=== PATIENT | male | born 1935 | race Caucasian/White ===

== ENCOUNTER 2016-06-07 16:30 | Observation (INO) | payer MEDICARE ==
--- NOTE | ~2016-06-07 | DS ---
Unit #: [id number] #: [id number] Patient: JONATHAN LANGLEY [id number] [address] [place], [place] [address] [id number] I MR#: [id number] NAME: JONATHAN LANGLEY. ROOM: 216 Age: 81 Sex: M Admission Date: 06/07/2016 : 1935 Discharge Date: 06/08/2016 Attending Physician: Anson Chris M.D. DISCHARGE SUMMARY A 23-HOUR OBSERVATION REASON FOR ADMISSION Anemia. HISTORY OF PRESENT ILLNESS The patient is an 81-year-old white male with history of end-stage renal disease on hemodialysis Mondays and Fridays at [facility]. Also, with diabetes and hypertension. Was found to be anemic at dialysis with hemoglobin 7. Was admitted to 23-hour observation for transfusion of 2 units of packed red blood cells. He was given blood overnight. Repeat hemoglobin is at 10. His home medications were continued. PHYSICAL EXAMINATION VITAL SIGNS: His blood pressures have ranged from 145/48 to 173/52 with heart rate of 67, respirations 16, temperature 97.8. GENERAL: He is a well-nourished white male. HEENT: Shows no JVD, no LAD. CARDIOVASCULAR: Regular rate and rhythm without murmurs, rubs, or gallops. LUNGS: Clear to auscultation bilaterally. ABDOMEN: Soft, nontender, nondistended. EXTREMITIES: Show no clubbing, cyanosis, or edema. His right upper extremity has an AV fistula, positive thrill and bruit. NEUROLOGIC: Grossly intact. DIAGNOSTIC STUDIES LABORATORY: Labs reviewed and include a repeat hemoglobin of 10. DISCHARGE MEDICATIONS 1. Tylenol 650 mg p.o. q.4 hours p.r.n. 2. Starlix 60 mg p.o. t.i.d. 3. Zetia 10 mg p.o. nightly. 4. Metoprolol XL 250 mg b.i.d. 5. MiraLax daily. 6. Rosuvastatin 5 mg p.o. daily. 7. Fish oil one p.o. b.i.d. 8. Aspirin 81 mg p.o. daily. DISCHARGE INSTRUCTIONS The patient is to follow up with his regularly scheduled hemodialysis on Tuesday. His dialysis unit was called and they were given information as Unit #: [id number] #: [id number] Patient: JONATHAN LANGLEY well as the repeat lab results. Dictated by... Darby Payne TD: 06/08/2016 16:53 JOB #: [id number] DISCHARGE SUMMARY Page 1 of 1 X Hilary Torres MD X DISCHARGE SUMMARY
[~2016-06-07 16:30] MED LIST: ACETAMINOPHEN PO; AMLODIPINE BESYL5 MG PO; ASPIRIN81 MG PO; CALCITRIOL0.25 MCG PO; CRESTOR5 MG PO; FISH OIL 1,2001 EAC2 PO; GLIPIZIDE10 MG PO; METOPROLOL SUCC50 MG PO; MIRALAX17 GM PO; SIMVASTATIN20 MG PO; SOD BICARBONATE PO; STARLIX60 MG PO; ZETIA PO; ZYLOPRIM PO
[2016-06-08 12:23] LABS: HEMATOCRIT 30.5 % (38.0-50.0)
[2016-06-08 12:33] LABS: HEMOGLOBIN 10.1 gm/dL (13.0-16.0)
== END 2016-06-08 17:38 | disposition home or self-care (01) ==
LOC: C2A 16:30
PROVIDERS: Internal Medicine Nephrology
DX: E11.22 Type 2 diabetes mellitus with diabetic chronic kidney disease (principal); I12.0 Hypertensive chronic kidney disease with stage 5 chronic kidney disease or end stage renal disease; N18.6 End stage renal disease; D63.1 Anemia in chronic kidney disease; Z99.2 Dependence on renal dialysis; Z79.84 Long term (current) use of oral hypoglycemic drugs; Z79.899 Other long term (current) drug therapy; Z79.82 Long term (current) use of aspirin
CPT/HCPCS: 36430; 85014; 85018; 86850; 86900; 86901; 86923; G0378; P9016

== ENCOUNTER 2016-07-10 11:57 | Inpatient (IN) | payer MEDICARE ==
--- NOTE | ~2016-07-10 | HP ---
Unit #: [id number] #: [id number] Patient: JONATHAN LANGLEY [id number] [facility]. [place], [place] [address] [id number] I MR#: [id number] NAME: JONATHAN LANGLEY ROOM: 319 Age: 81 Sex: M Admission Date: 07/10/2016 : 1935 Attending Physician: Nancy Kelley M.D. Primary Care Physician: Jaqui Jackson M.D. HISTORY AND PHYSICAL CHIEF COMPLAINT Missed dialysis. HISTORY OF PRESENT ILLNESS The patient is an 81-year-old male with a history of chronic renal disease, stage 4 secondary to diabetes and hypertension on dialysis Tuesday, Tuesday and Tuesday and had a recent foot surgery with a partial left foot amputation last , missed her dialysis on Tuesday, presented to the emergency room with abnormal labs. The patient stated the patient is scheduled to follow with the foot doctor next and patient was found to have abnormal labs with potassium of 6.7. The patient is being admitted for the above reasons. The patient denies any chest pain, palpitations, nausea, or vomiting. The patient was found to be anemia with hemoglobin of 7 and hematocrit of 22.2. The patient is over in the dialysis with a blood transfusion urgently today. Denies any fever, chills, nausea, or vomiting. PAST MEDICAL HISTORY History of chronic kidney disease, diabetes, hypertension, hyperlipidemia, gout, secondary to hyperparathyroidism. PAST SURGICAL HISTORY History of a back surgery, left ear surgery, placement of a right upper extremity AV fistula and left partial foot amputation. SOCIAL HISTORY Quit smoking many years ago. No alcohol. Denies any illicit drug abuse. FAMILY HISTORY Reviewed and none. ALLERGIES No know drug allergies. MEDICATIONS Aspirin, Percocet, Norvasc, Coreg, Plavix, Renvela, Desyrel, cephalexin. REVIEW OF SYSTEMS Fourteen point review of systems was performed and only pertinent positives findings are as described above. The remaining are negative. PHYSICAL EXAMINATION GENERAL: The patient is lying in the bed, not in acute distress. VITALS: Temperature 97.9, pulse 68, respiratory rate 15, blood pressure 142/59, satting 93% at 3 liters. Unit #: [id number] #: [id number] Patient: JONATHAN LANGLEY HEENT: Head atraumatic, normocephalic. Pupils equal, round and reactive to light and accommodation. Extraocular movements are intact. NECK: Supple. LUNGS: Decreased air entry at the bases. HEART: Regular rate and rhythm. ABDOMEN: Soft. Positive bowel sounds. EXTREMITIES: Positive for AV fistula. Status post left partial amputation with a dressing. NEUROLOGIC: Alert, awake and oriented. No gross focal motor deficit. DIAGNOSTIC STUDIES LABORATORY DATA: Glucose 88, BUN 88, creatinine 10.4, sodium 135, potassium 6.7, chloride 96, bicarb 19, calcium 8.9. WBC is 8.3, hemoglobin 7, hematocrit 92.2, platelet 187. IMAGING STUDIES: Chest x-ray shows single view of the chest was obtained. No significant interval change in the postoperative cardiac changes with evidence of CABG and valve replacement. Stable mild cardiomegaly. There appears to be mild opacity in the left lateral CP angle. Small pleural effusion with adjacent atelectasis/mild infiltrate cannot be clearly excluded. The left hemidiaphragm is not as sharply seen as the prior comparison. No pneumothorax. There is mild prominence of the interstitial markings which could be related to acute disease like congestion or could be chronic. CARDIOLOGY STUDIES: The EKG shows sinus rhythm with first degree AV block. No EKG changes for the hyperkalemia. ASSESSMENT AND PLAN 1. Chronic kidney disease, end stage renal disease on hemodialysis. 2. Hyperkalemia. 3. Anemia. PLAN Plan to admit the patient to the inpatient with telemetry. Patient will be going to dialysis with correction of the potassium with insulin, D50, and the bicarb and calcium in the emergency room. The patient is already getting two units of packed red blood cells. Will hold the Plavix and cephalexin and will have the foot surgery to evaluate the foot to rule out bleeding and type and cross two units of packed red blood cells and further recommendations will follow as more lab results are available. Dictated by Darby Lacey TD: 07/10/2016 20:41 JOB #: [id number] Unit #: [id number] #: [id number] Patient: JONATHAN LANGLEY HISTORY AND PHYSICAL Page 1 of 1 X X HISTORY AND PHYSICAL
--- NOTE | ~2016-07-10 | DS ---
Unit #: [id number] #: [id number] Patient: JONATHAN LANGLEY [id number] [address] [place], [place] [address] [id number] I MR#: [id number] NAME: JONATHAN LANGLEY. ROOM: 319 Age: 81 Sex: M Admission Date: 07/10/2016 : 1935 Discharge Date: 07/11/2016 Attending Physician: Nancy Kelley M.D. Primary Care Physician: Jaqui Jackson M.D. DISCHARGE SUMMARY FINAL DIAGNOSES 1. Anemia, acute on chronic. 2. Fluid overload. SECONDARY DIAGNOSES 1. End-stage renal disease. 2. Congestive heart failure. 3. Chronic kidney disease. 4. Diabetes mellitus type 2. 5. Secondary hyperparathyroidism. CONSULT Nephrology, Dr. Camacho. PROCEDURES 1. He had dialysis. 2. He had 2 units of packed red blood cells with dialysis. HOSPITAL COURSE An 81-year-old male, who basically presented with shortness of breath after missing dialysis. His labs were abnormal. His potassium was 6.7. Hemoglobin was 7. He was transfused 2 units of packed red blood cells and he was dialyzed. He was seen by nephrology. He also recently had a left foot surgery and he was seen curbside by Dr. Rosario for evaluation of the wound. He was evaluated, found suitable and stable for discharge. His hemoglobin today, day of discharge, is 10.9. He will be discharged in stable condition for outpatient followup with PCP in next one to two weeks and dialysis as scheduled. DISCHARGE MEDICATIONS 1. Trazodone 50 mg p.o. daily. 2. Coreg 25 mg p.o. b.i.d. 3. Amlodipine 10 mg p.o. daily. 4. Keflex 500 mg p.o. q.8 per home dose. 5. Aspirin 81 mg p.o. daily. 6. Percocet 5/325 one tablet p.o. q.4 hourly p.r.n. as needed for home dose. 7. Renvela 1600 mg with meals. 8. Plavix 75 mg p.o. daily. FOLLOWUP 1. Followup with PCP in the next one to two weeks. 2. Followup with dialysis as planned. Unit #: [id number] #: [id number] Patient: JONATHAN LANGLEY Time spent coordinating discharge about 22 minutes. Dictated by... Darby Larry/tana TD: 07/12/2016 10:49 JOB #: [id number] CC: Jaqui Jackson M.D. DISCHARGE SUMMARY Page 1 of 1 X Jenise Adhikari MD X DISCHARGE SUMMARY
--- NOTE | ~2016-07-10 | CO ---
Unit #: [id number] #: [id number] Patient: JONATHAN LANGLEY [id number] [facility]. [place], [place] [address] [id number] I MR#: [id number] NAME: JONATHAN LANGLEY. ROOM: 319 Age: 81 Sex: M Admission Date: 07/10/2016 : 1935 Attending Physician: Nancy Kelley M.D. Primary Care Physician: Jaqui Jackson M.D. Consultation Date: 07/10/2016 CONSULTATION REPORT HISTORY OF PRESENT ILLNESS The patient is a very pleasant 81-year-old white male with a history of end-stage renal disease, on Tuesday, Tuesday, Tuesday hemodialysis, who missed dialysis yesterday due to not feeling well. He had partial left foot amputation on and was unable to make it to dialysis on the following day. He presents to the emergency room with weakness, shortness of breath, and is found to be hyperkalemic. He denies any chest pain. No nausea, vomiting, or diarrhea. No other complaints. PAST MEDICAL HISTORY Significant for end-stage renal disease, diabetes, hypertension, hyperlipidemia, gout, secondary hyperparathyroidism. PAST SURGICAL HISTORY Back surgery, left ear surgery, AV fistula surgery, and left partial foot amputation. SOCIAL HISTORY Former tobacco. Occasional alcohol. No illicit's. FAMILY HISTORY Noncontributory. ALLERGIES No known drug allergies. REVIEW OF SYSTEMS Twelve-system review of systems is negative except as per HPI. HOME MEDICATIONS Per med rec. PHYSICAL EXAMINATION VITAL SIGNS: His blood pressure is 156/54, heart rate 82, respirations 20, saturating 99%, T-max 97.9. GENERAL: He is a pleasant, elderly white male, in no acute distress. HEENT: Head is normocephalic, atraumatic. ENT; pupils equally round and reactive to light. Oropharynx is clear. NECK: Supple. No JVD. LUNGS: Clear to auscultation bilaterally. HEART: Regular rate and rhythm. No murmurs, gallops, or rubs. ABDOMEN: Soft, nontender, nondistended. Positive bowel sounds. EXTREMITIES: He has trace lower extremity edema. He has a left foot which is dressed. Unit #: [id number] #: [id number] Patient: JONATHAN LANGLEY SKIN: Warm and dry. NEUROLOGIC: Cranial nerves II through XII intact to testing. Gait is not assessed. DIAGNOSTIC STUDIES LABORATORY RESULTS: Sodium 135, potassium 6.7, chloride 96, bicarb 19, BUN 84, creatinine 10.4, glucose 88, calcium 8.9. White count 8.3, hemoglobin 7, and platelets 187. IMPRESSION 1. End-stage renal disease. 2. Hyperkalemia. 3. Anemia of chronic kidney disease. 4. Fluid overload. 5. Metabolic acidosis. PLAN Stat dialysis for hyperkalemia. We will transfuse 2 units of PRBCs with dialysis. Recheck labs in the morning. We will also give Epogen with dialysis. Continue remaining home medications. We will follow. Thank you very much for this consultation. Dictated by... Shaun Camacho M.D. DAF/modl TD: 07/10/2016 20:01 JOB #: [id number] CONSULTATION REPORT Page 1 of 1 X Shaun Camacho MD X CONSULTATION REPORT
--- NOTE | ~2016-07-10 | CR72 ---
[facility]. [facility] A Service of [facility] & [facility] RADIOLOGY TEXT RESULTS PATIENT: JONATHAN LANGLEY LOCATION: [facility] 319-01 : 35 UNIT #: [id number] AGE: [address]: RENATO MAYFIELD MD SEX: M ORDER DR: [id number] [facility] [address] [place], [place] [address] [id number] MR#: [id number] Acc #: [id number] NAME: JONATHAN LANGLEY. : 1935 SEX: M STUDY DATE/TIME: 07/10/2016 10:54 UNIT: [facility] ROOM: STUDY DESCRIPTION: CR Chest Single View Portable Attending Physician: De Pollock M.D. Ordering Physician: De Pollock M.D. Primary Care Physician: Jaqui Jackson M.D. MEDICAL IMAGING REPORT This report is preliminary unless electronic signature is present EXAM Single view of the chest dated 07/10/2016 COMPARISON Chest two-view dated 04/08/2016 HISTORY Shortness of air since 07/05/2016. Patient is on dialysis. CHF and renal disease. FINDINGS Single view of the chest was obtained. No significant interval change in the postoperative cardiac changes with evidence of CABG and valve replacement. Stable mild cardiomegaly. There appears to be mild opacity in the left lateral CP angle. Small pleural effusion with adjacent atelectasis/mild infiltrate cannot be clearly excluded. The left hemidiaphragm is not as sharply seen as the prior comparison. No pneumothorax. There is mild prominence of the interstitial markings which could be related to acute disease like congestion or could be chronic. Dictated by... Maira Burgos M.D. THIS IS AN ELECTRONICALLY VERIFIED REPORT Maira Burgos M.D. at 07/12/2016 2:59 PM CPR/macy TD: 07/10/2016 12:57 JOB #: [id number] MEDICAL IMAGING REPORT Page 1 of 1 COPY
--- NOTE | ~2016-07-10 | EKG ---
PATIENT: JONATHAN LANGLEY UNIT #: [id number] Ventricular Rate: 66 BPM Atrial Rate: 66 BPM P-R Interval: 212 ms QRS Duration: 96 ms Q-T Interval: 444 ms QTC Calculation(Bezet): 465 ms P [place]: 34 degrees Calculated R [place]: -13 degrees Calculated T [place]: 54 degrees Diagnosis Line: Sinus rhythm with 1st degree A-V block Diagnosis Line: Otherwise normal ECG Diagnosis Line: When compared with ECG of 08-APR-2016 21:15, Diagnosis Line: Criteria for Septal infarct are no longer Present Diagnosis Line: T wave amplitude has increased in Anterior leads Diagnosis Line: Nonspecific T wave abnormality, worse in Lateral Diagnosis Line: leads Diagnosis Line: LEG LEADS ON [facility] Diagnosis Line: Confirmed by SHAUNA CASTILLO MD ([id number]) on Diagnosis Line: 07/13/2016 4:31:12 PM INTERPRETING MD: JONATHAN AL
[2016-07-10 12:05] LABS: BASOPHIL# 0.1 X10e3 (0-0.3); BASOPHIL% 0.6 % (0-2.5); EOSINOPHIL# 0.2 X10e3 (0-0.7); EOSINOPHIL% 2.2 % (0.0-7.0); HEMATOCRIT 22.2 % (38.0-50.0); LYMPHOCYTE# 0.5 X10e3 (1.0-3.5); MEAN CELL VOLUME 100.1 FL (83-96); MEAN CORPUSCULAR HEMOGLOBIN 31.6 PG (28-34); MEAN CORPUSCULAR HGB CONC 31.6 g/dL (30-36); MEAN PLATELET VOLUME 7.3 FL (6.5-11.5); MONOCYTE# 1.1 X10e3 (0-1.0); MONOCYTE% 13.6 % (3.0-12.0); NEUTROPHIL# 6.5 X10e3 (1.5-7.1); NEUTROPHIL% 77.6 % (40-75); PLATELET COUNT 187 X10e3 (140-420); RED BLOOD COUNT 2.22 X10e (3.90-5.60); RED CELL DISTRIBUTION WIDTH 20.1 % (11.0-15.5); WHITE BLOOD COUNT 8.3 X10e3 (4.0-10.5)
[2016-07-10 12:09] LABS: DIFF IND YES
[2016-07-10 12:33] LABS: ANISOCYTOSIS MOD; BUN/CREATININE RATIO 8.07; CALCIUM SERUM 8.9 mg/dL (8.4-10.2); CREATININE SERUM 10.4 mg/dL (0.6-1.4); GLOM FILT RATE Estimated 4.1 mL/min (>60); PLATELET ESTIMATE NORMAL (NORMAL); RBC NORMAL YES
[2016-07-10 12:34] LABS: BURR CELLS PRESENT; MICROCYTOSIS SL; OVALOCYTES PRESENT; POIKILOCYTOSIS SL
[2016-07-10 12:35] LABS: POTASSIUM 6.7 mmol/L (3.5-5.1)
[2016-07-10] MEDS ORDERED: AMLODIPINE BESY10 MG PO (12:40)
[2016-07-10] MEDS ORDERED: PERCOCET5/325 PO (12:40)
[2016-07-10] MEDS ORDERED: CLOPIDOGREL75 MG PO (12:41)
[2016-07-10] MEDS ORDERED: CARVEDILOL25 MG PO (12:41)
[2016-07-10] MEDS ORDERED: RENVELA800 MG PO (12:42)
[2016-07-10] MEDS ORDERED: DESYREL50 MG PO (12:43)
[2016-07-10] MEDS ORDERED: KEFLEX500 MG PO (12:44)
[2016-07-11 06:56] LABS: HEMATOCRIT 33.7 % (38.0-50.0); MEAN CORPUSCULAR HGB CONC 32.5 g/dL (30-36); MEAN PLATELET VOLUME 7.1 FL (6.5-11.5); RED BLOOD COUNT 3.53 X10e (3.90-5.60); RED CELL DISTRIBUTION WIDTH 19.8 % (11.0-15.5); WHITE BLOOD COUNT 9.4 X10e3 (4.0-10.5)
[2016-07-11 06:58] LABS: HEMOGLOBIN 10.9 gm/dL (13.0-16.0); MEAN CELL VOLUME 95.4 FL (83-96)
[2016-07-11 07:52] LABS: CALCIUM SERUM 8.9 mg/dL (8.4-10.2)
[2016-07-11 08:10] LABS: BUN/CREATININE RATIO 7.01; CREATININE SERUM 6.7 mg/dL (0.6-1.4); POTASSIUM 4.8 mmol/L (3.5-5.1)
== END 2016-07-11 15:02 | disposition home health service (06) | DRG 640 ==
LOC: CED 11:57 → CEDOF 12:56 → C3A PCU 16:32
PROVIDERS: Emergency Medicine; Internal Medicine Nephrology
PROC: 30233N1 Transfusion of Nonautologous Red Blood Cells into Peripheral Vein, Percutaneous Approach (ICD-10-PCS; principal; 2016-07-10)
PROC: 5A1D00Z (ICD-10-PCS; 2016-07-10)
DX: E87.70 Fluid overload, unspecified (principal); N18.6 End stage renal disease; E87.2 Acidosis; I12.0 Hypertensive chronic kidney disease with stage 5 chronic kidney disease or end stage renal disease; E11.22 Type 2 diabetes mellitus with diabetic chronic kidney disease; E87.5 Hyperkalemia; Z79.82 Long term (current) use of aspirin; Z79.02 Long term (current) use of antithrombotics/antiplatelets; Z99.2 Dependence on renal dialysis; Z91.15 Patient's noncompliance with renal dialysis; M10.9 Gout, unspecified; Z87.891 Personal history of nicotine dependence; D63.1 Anemia in chronic kidney disease; I50.9 Heart failure, unspecified; E78.5 Hyperlipidemia, unspecified
CPT/HCPCS: 36415; 71010; 80048; 82947; 85025; 85027; 86850; 86900; 86901; 86923; 87340; 93005; 99285; J0610; P9016; Q4081

== ENCOUNTER → 2016-08-11 | Outpatient (CLI) | payer MEDICARE ==
[~2016-08-11] MED LIST changes: +AMLODIPINE BESY10 MG PO; +CARVEDILOL25 MG PO; +CLOPIDOGREL75 MG PO; +DESYREL50 MG PO; +KEFLEX500 MG PO; +PERCOCET5/325 PO; +RENVELA800 MG PO
--- NOTE | ~2016-08-11 | CR63 ---
[facility] A Service of [facility] & [facility] RADIOLOGY TEXT RESULTS PATIENT: JONATHAN LANGLEY LOCATION: [facility] : 35 UNIT #: [id number] AGE: [address]: CHHAYA OLMSTEAD APRN SEX: M ORDER DR: [id number] [facility] [address] [place], [place] [address] [id number] O MR#: [id number] Acc #: [id number] NAME: JONATHAN LANGLEY. : 1935 SEX: M STUDY DATE/TIME: 08/11/2016 16:31 UNIT: [facility] ROOM: STUDY DESCRIPTION: CR Chest 2 View Attending Physician: Chhaya Olmstead Np Referring Physician: Chhaya Olmstead Np Ordering Physician: Chhaya Olmstead Np Primary Care Physician: aJqui Jackson M.D. MEDICAL IMAGING REPORT This report is preliminary unless electronic signature is present EXAM Chest x-ray 08/11/2016 INDICATION Shortness of air for 1 month. History of hypertension. FINDINGS 2 views of the chest compared with 07/10/2016. Cardiomegaly is stable status post CABG and valve repair. There is a small left pleural effusion with left basilar atelectasis. This is stable. Lungs otherwise are clear. No pneumothorax. IMPRESSION No significant interval change and a trace left effusion with some left base atelectasis. Stable cardiomegaly. Dictated by... Sravan Herrera Jr., M.D. THIS IS AN ELECTRONICALLY VERIFIED REPORT Sravan Herrera Jr., M.D. at 08/13/2016 6:07 AM ESEQUIEL/mercy TD: 08/12/2016 12:57 JOB #: [id number] MEDICAL IMAGING REPORT Page 1 of 1 COPY
== END | disposition home or self-care (01) ==
LOC: CRAD 15:38
DX: R06.00 Dyspnea, unspecified (principal); J98.11 Atelectasis; I51.7 Cardiomegaly
CPT/HCPCS: 71020

== ENCOUNTER 2016-10-14 11:54 | Emergency (ER) | payer MEDICARE ==
[~2016-10-14] VITALS: Ht 170.2 cm; Wt 68.9 kg
--- NOTE | ~2016-10-14 | EKG ---
PATIENT: JONATHAN LANGLEY UNIT #: [id number] Ventricular Rate: 77 BPM Atrial Rate: 77 BPM P-R Interval: 194 ms QRS Duration: 104 ms Q-T Interval: 386 ms QTC Calculation(Bezet): 436 ms P [place]: 29 degrees Calculated R [place]: -39 degrees Calculated T [place]: 71 degrees Diagnosis Line: Normal sinus rhythm Diagnosis Line: Left axis deviation Diagnosis Line: Minimal voltage criteria for LVH, may be normal Diagnosis Line: variant Diagnosis Line: Abnormal ECG Diagnosis Line: When compared with ECG of 10-JUL-2016 10:48, Diagnosis Line: No significant change was found Diagnosis Line: Confirmed by JYOTSNA LORENZO MD ([id number]) on 10/16/2016 Diagnosis Line: 8:21:37 AM INTERPRETING MD: MAURA AL
[2016-10-14 12:52] LABS: BASOPHIL# 0.1 X10e3 (0-0.3); BASOPHIL% 0.7 % (0-2.5); EOSINOPHIL# 0.3 X10e3 (0-0.7); EOSINOPHIL% 3.4 % (0.0-7.0); HEMATOCRIT 36.7 % (38.0-50.0); HEMOGLOBIN 12.1 gm/dL (13.0-16.0); LYMPHOCYTE# 1.5 X10e3 (1.0-3.5); LYMPHOCYTE% 16.8 % (17.0-45.0); MEAN CELL VOLUME 102.1 FL (83-96); MEAN CORPUSCULAR HEMOGLOBIN 33.8 PG (28-34); MEAN CORPUSCULAR HGB CONC 33.1 g/dL (30-36); MEAN PLATELET VOLUME 7.5 FL (6.5-11.5); MONOCYTE# 1.3 X10e3 (0-1.0); MONOCYTE% 14.2 % (3.0-12.0); NEUTROPHIL# 5.9 X10e3 (1.5-7.1); NEUTROPHIL% 64.9 % (40-75); PLATELET COUNT 232 X10e3 (140-420); RED BLOOD COUNT 3.59 X10e (3.90-5.60); RED CELL DISTRIBUTION WIDTH 18.6 % (11.0-15.5); WHITE BLOOD COUNT 9.1 X10e3 (4.0-10.5)
[2016-10-14 12:58] LABS: DIFF IND NO
[2016-10-14 13:17] LABS: BUN/CREATININE RATIO 7.83; CALCIUM SERUM 9.6 mg/dL (8.4-10.2); CREATININE SERUM 9.7 mg/dL (0.6-1.4); GLOM FILT RATE Estimated 4.5 mL/min (>60); POTASSIUM 5.4 mmol/L (3.5-5.1)
== END 2016-10-14 13:44 | disposition home or self-care (01) ==
LOC: CED 11:54
DX: E87.5 Hyperkalemia (principal); N18.6 End stage renal disease
CPT/HCPCS: 36415; 80048; 85025; 93005; 99285